=== PATIENT | female | born 1985 | race Caucasian/White ===

== ENCOUNTER 2017-06-18 09:00 | Inpatient (IN) | payer OTHER ==
[~2017-06-18] VITALS: Ht 165.1 cm; Wt 66.7 kg
--- NOTE | ~2017-06-18 | PN ---
Unit #: [id number] #: [id number] Patient: TERRANCE BUSTOS [id number] [facility] [address] [place] [address] [id number] I MR#: [id number] NAME: TERRANCE BUSTOS. ROOM: P252 Age: 32 Sex: F Admission Date: 06/18/2017 : 1985 Attending Physician: Roxy Maxwell M.D. Admitting Physician: Roxy Maxwell M.D. Primary Care Physician: Generic Doctor Not In System [facility] PROGRESS NOTES DATE OF SERVICE 06/19/2017 DISCUSSION Mr. Bustos is a 32-year-old white female who was seen today. Chart was reviewed and case was discussed with the staff. She has been anxious, withdrawn, and rather seclusive to himself. Meanwhile, she has been cooperative with the treatment recommendations and has been taking the medications and tolerating them fairly well with no reported side effects. MENTAL STATUS EXAMINATION Young white female who is casually dressed with fair personal hygiene, appears to be in no acute distress or discomfort. She was awake and alert on interaction with intact orientation. Her mood is anxious and depressed with congruent affect. Her speech is slow and goal-directed. She reports having suicidal ideations. He denies any homicidal ideations. His insight and judgment remain slightly impaired. TREATMENT PLAN 1. We will continue her on her current medications and treatment protocol. We will monitor her response to medications and make further adjustments as needed. 2. We will continue to follow up. Dictated by... Douglas Kan/ramo TD: 06/19/2017 10:29 JOB #: [id number] Unit #: [id number] #: [id number] Patient: TERRANCE BUSTOS [facility] PROGRESS NOTES Page 1 of 1 X Roxy Maxwell MD PROGRESS NOTE
--- NOTE | ~2017-06-18 | HP ---
Unit #: [id number] #: [id number] Patient: TERRANCE GONZALEZ [id number] [place] [address] [id number] MR#: [id number] NAME: TERRANCE GONZALEZ. ROOM: P252 Age: 32 Sex: F Admission Date: 06/18/2017 : 1985 Attending Physician: Roxy Maxwell M.D. Admitting Physician: Roxy Maxwell M.D. Primary Care Physician: Generic Doctor Not In System HISTORY AND PHYSICAL HISTORY OF PRESENT ILLNESS Terrance is a 32 year old admitted to [address] [place] [address] with depression and verbalizing wanting to hurt herself. PAST MEDICAL HISTORY Kidney stones. PAST SURGICAL HISTORY Numerous lithotripsies. ALLERGIES No known drug allergies. SOCIAL HISTORY Smokes less than one-half pack per day. Drinks alcohol rarely. Denies illicit drug use. FAMILY HISTORY Medically noncontributory. REVIEW OF SYSTEMS CONSTITUTIONAL: No fever or chills. HEENT: Denies any sore throat, ear pain or runny nose. CARDIOVASCULAR: Denies chest pain, irregular heart rhythm or palpitations. CHEST: Denies shortness of breath or cough. No hemoptysis. GASTROINTESTINAL: Denies nausea, vomiting, diarrhea or chronic constipation. ENDOCRINE: Denies history of increased thirst or urination. No recent significant weight loss or gain. GENITOURINARY: Denies dysuria, frequency, or hematuria. SKIN: Denies any rashes. HEMATOLOGIC: Denies history of increased bleeding or bruising. MUSCULOSKELETAL: Denies any hot, swollen joints. No generalized muscle pain. NEUROLOGIC: Denies problems with vision or speech. No frequent, severe headaches. No numbness, tingling or weakness in any extremities. Denies loss of bladder or bowel control. CURRENT MEDICATIONS 1. Wellbutrin XL 150 mg q.a.m. 2. Milk of Magnesia p.r.n. 3. Maalox p.r.n. 4. Tylenol p.r.n. Unit #: [id number] #: [id number] Patient: TERRANCE GONZALEZ 5. Nicotine patch 7 mg q. day. PHYSICAL EXAMINATION GENERAL: Alert, well nourished. No apparent distress. VITAL SIGNS: Blood pressure 120/76, heart rate 80, respirations 16, and temperature 98.6. WEIGHT: 147. HEIGHT: 5 feet 5 inches. SKIN: Warm and dry without rash or lesion. HEENT: Normocephalic. TMs not viewed. Oral and nasal passages clear. Conjunctivae clear. PERRLA. EOMs intact. NECK: Supple without lymphadenopathy or thyromegaly. HEART: Regular rate and rhythm without murmur. LUNGS: Clear. ABDOMEN: Soft, nontender. : Not done. EXTREMITIES: No evidence of cyanosis, clubbing or edema. Moves all without focal deficit. NEUROLOGICAL: Grossly within normal limits. Cranial Nerves: II: Visual headley are intact. III, IV AND : Extraocular movements are intact. Pupils are equal, round and reactive to light. V: Facial sensation is grossly normal. VII: Facial movements and expression are normal. VIII: Auditory acuity grossly intact. IX, X: Uvula is midline. Phonation is normal. XI: Patient shrugs shoulders and turns head normally. XII: Tongue protrudes in the midline. Sensory and Motor Function: Sensory and motor sensation is grossly normal. Motor: moves all extremities well. Coordination: Gait is normal. Deep Tendon Reflexes: Intact. IMPRESSION Psychiatric admission. RECOMMENDATIONS PSYCHIATRIC: Per psychiatrist. MEDICAL: I see no contraindication to participate in this facility's activities. MEDICAL PROGNOSIS Good. MEDICAL CONDITION Stable. Dictated by... Shanita Young P.A.-C. for Douglas Olvera/ramo TD: 06/19/2017 13:49 JOB #: [id number] Unit #: [id number] #: [id number] Patient: TERRANCE GONZALEZ HISTORY AND PHYSICAL Page 1 of 1 X Shanita Young HISTORY AND PHYSICAL
--- NOTE | ~2017-06-18 | DS ---
Unit #: [id number] #: [id number] Patient: TERRANCE GONZALEZ [id number] [facility] [address] [place] [address] [id number] I MR#: [id number] NAME: TERRANCE GONZALEZ. ROOM: [facility] Age: 32 Sex: F Admission Date: 06/18/2017 : 1985 Discharge Date: 06/22/2017 Attending Physician: Roxy Maxwell M.D. Primary Care Physician: Generic Doctor Not In System DISCHARGE SUMMARY REASON FOR ADMISSION Suicidal ideation. DIAGNOSTIC STUDIES LABORATORY RESULTS: Unremarkable. HOSPITAL COURSE The patient was admitted to inpatient unit on 06/18/2017 and discharged on 06/22/2017. The patient was treated on the inpatient unit with group therapy, individual therapy, medication management. The patient was responsive to treatment. Subsequently, the patient was discharged with a plan to follow up in outpatient program. DISCHARGE MEDICATIONS Wellbutrin XL 150 mg in the morning for depression. DISCHARGE DIAGNOSES Psychiatric: Major depressive disorder, recurrent, severe, without psychotic features, F33.2; methamphetamine abuse, moderate, F15.20. Secondary diagnosis: Deferred. Medical diagnosis: None. Stressors: Psychosocial stressors. DISCHARGE INSTRUCTIONS The patient to follow up in outpatient clinic as per social services assistant. CONDITION ON DISCHARGE The patient was pleasant and cooperative. Denied any psychotic symptom or any suicidal ideation. PROGNOSIS Guarded. DIET AND ACTIVITY As tolerated. Dictated by... Melquiades Eagle M.D. Unit #: [id number] #: [id number] Patient: TERRANCE GONZALEZ SZC/modl TD: 06/23/2017 16:22 JOB #: [id number] DISCHARGE SUMMARY Page 1 of 1 X Melquiades Eagle MD X DISCHARGE SUMMARY
--- NOTE | ~2017-06-18 | PN ---
Unit #: [id number] #: [id number] Patient: TERRANCE BUSTOS [id number] [facility] [address] [place] [address] [id number] I MR#: [id number] NAME: TERRANCE BUSTOS. ROOM: P252 Age: 32 Sex: F Admission Date: 06/18/2017 : 1985 Attending Physician: Roxy Maxwell M.D. Admitting Physician: Roxy Maxwell M.D. Primary Care Physician: Generic Doctor Not In System [facility] PROGRESS NOTES DATE 06/21/2017 DISCUSSION Ms. Bustos is a 32-year-old white female who was seen today and chart was reviewed and case was discussed with the staff. She has been anxious, withdrawn and rather seclusive to herself. Meanwhile, she has been cooperative with treatment recommendations as she has been taking the medications and tolerating them fairly well with no reported side effects. MENTAL STATUS EXAMINATION Young white female who was casually dressed with fair personal hygiene, appears to be in no acute distress or discomfort. She was awake and alert on interaction with intact orientation. Her mood was anxious with congruent affect. She denies any suicidal or homicidal ideations. Her insight and judgement remains slightly impaired. TREATMENT PLAN 1. We will continue her on her current medications and treatment protocol. We will monitor her response to the medication and make further adjustments as needed. 2. We will continue to follow up. Dictated by... Douglas Kan/erin TD: 06/23/2017 00:09 JOB #: [id number] Unit #: [id number] #: [id number] Patient: TERRANCE BUSTOS [facility] PROGRESS NOTES Page 1 of 1 X Roxy Maxwell MD X PROGRESS NOTE
--- NOTE | ~2017-06-18 | PA ---
Unit #: [id number] #: [id number] Patient: TERRANCE BUSTOS [id number] [facility] [address] [place] [address] [id number] I MR#: [id number] NAME: TERRANCE BUSTOS. ROOM: P252 Age: 32 Sex: F Admission Date: 06/18/2017 : 1985 Date of Assessment: 06/18/2017 Attending Physician: Roxy Maxwell M.D. Admitting Physician: Roxy Maxwell M.D. Primary Care Physician: Generic Doctor Not In System PSYCHIATRIC ASSESSMENT DATE OF SERVICE 06/18/2017. IDENTIFYING DATA Ms. Bustos is a 32-year-old single white female, who is a resident of [place], [place], and was self-referred to the hospital on a voluntary basis. CHIEF COMPLAINT "Depression and suicidal ideation." HISTORY OF PRESENT ILLNESS Ms. Bustos is a 32-year-old white female with history of mood disorder, who brought herself to the hospital reporting increasing depression, suicidal ideation, and that she has noticed increasing depression for about a month now that she moved to [facility] in February, but this past month has been hard for her. The patient reports she lost the will to live and has low energy and has lost interest in doing things and that she has been having suicidal thoughts every day for the past 2 weeks and reports 2 days ago, she had a plan to overdose on medications to take her life. The patient reports that she took about 20 Tylenol PM to kill herself, but she woke up and reports that while she was awake, she could hear voices, but could not move and reports that she feels that she wants to try again hoping to be successful in her suicide attempt and as such, was seemed to be a significant threat to herself and therefore, recommendation for inpatient level of care for safety and stabilization was made. The patient was transferred to us. SUBSTANCE ABUSE HISTORY The patient reports occasional experimentation with methamphetamine, but has not done in the last few months. PAST PSYCHIATRIC HISTORY The patient has a history of outpatient psychiatric treatment in the past. Review of the medical records indicate currently she is not active in any treatment program, is not seeing a psychiatrist, and is not taking any psychotropic medications. PAST MEDICAL HISTORY No acute or chronic medical illnesses. ALLERGIES No known medication allergies. Unit #: [id number] #: [id number] Patient: TERRANCE BUSTOS CURRENT MEDICATIONS None. PERSONAL AND SOCIAL HISTORY A 32-year-old white female, who reports that she is single, unemployed, and lives with her mother, her brother, and has fairly decent social support system. MENTAL STATUS EXAMINATION Young white female, who was casually dressed with fair personal hygiene, appears to be in no acute distress or discomfort. She was awake and alert on interaction with intact orientation to time, place, and person. Her mood was anxious and depressed with a congruent affect. Her speech was slow and restricted in content. She reports having suicidal ideations, but denies any homicidal ideations, and also denies any auditory or visual hallucinations. Her insight and judgment remain slightly impaired. DIAGNOSTIC IMPRESSION Psychiatric: Major depressive disorder, recurrent, moderate, without psychotic features; methamphetamine abuse, moderate. Medical: None. Stressors: Moderate psychosocial stressors. TREATMENT PLAN 1. The patient has presented with history of mood disorder and substance abuse and has been decompensating and will need inpatient hospitalization for safety and stabilization. We will start her back on her home medications. We will adjust the medications and monitor response. 2. Supportive therapy was provided to the patient. 3. Safe, structured, and nourishing environment will be provided. ESTIMATED LENGTH OF STAY 4 to 5 days. ABILITY TO HELP SELF Limited. WILLINGNESS TO HELP SELF The patient appears to be willing to help self. STRENGTHS 1. Communicative. 2. Cooperative. PROBLEMS 1. Chronic dysphoric symptoms. 2. Poor social support system. DISCHARGE CRITERIA This will be contingent upon the patient's ability to show resolution of her depression and anxiety and her ability to stay safe to herself, particularly after discharge from the hospital. Dictated by... Roxy Maxwell M.D. Unit #: [id number] #: [id number] Patient: TERRANCE BSUTOS IAA/modl TD: 06/19/2017 08:11 JOB #: [id number] PSYCHIATRIC ASSESSMENT Page 1 of 1 X Roxy Maxwell A MD X PSYCHIATRIC ASSESSMENT
--- NOTE | ~2017-06-18 | PN ---
Unit #: [id number] #: [id number] Patient: TERRANCE BUSTOS [id number] [facility] [address] [place] [address] [id number] MR#: [id number] NAME: TERRANCE BUSTOS. ROOM: P252 Age: 32 Sex: F Admission Date: 06/18/2017 : 1985 Attending Physician: Roxy Maxwell M.D. Admitting Physician: Roxy Maxwell M.D. Primary Care Physician: Generic Doctor Not In System [facility] PROGRESS NOTES DATE 06/20/2017 DISCUSSION Ms. Bustos is a 32-year-old white female who was seen today and chart was reviewed and case was discussed with the staff. She has been anxious, withdrawn and rather seclusive to herself. Meanwhile, she has been cooperative with treatment recommendations. She has been taking the medications and tolerating them fairly well with no reported side effects. MENTAL STATUS EXAMINATION Young white female who was casually dressed with fair personal hygiene, appears to be in no acute distress or discomfort. She was awake and alert with intact orientation. Her mood was anxious with congruent affect. She denies any suicidal or homicidal ideations. Her insight and judgement remains slightly impaired. TREATMENT PLAN 1. We will continue her on her current medications and treatment protocol. We will monitor her response and make further adjustments as needed. 2. We will continue to follow up. Dictated by... Douglas Kan/erin TD: 06/22/2017 03:37 JOB #: [id number] Unit #: [id number] #: [id number] Patient: TERRANCE BUSTOS [facility] PROGRESS NOTES Page 1 of 1 X Roxy Maxwell MD X PROGRESS NOTE
[2017-06-19 09:40] LABS: BASOPHIL% 0.6 % (0-2.5); EOSINOPHIL# 0.3 X10e3 (0-0.7); EOSINOPHIL% 5.1 % (0.0-7.0); HEMATOCRIT 41.8 % (35.0-45.0); HEMOGLOBIN 13.6 gm/dL (12.0-16.0); LYMPHOCYTE# 1.9 X10e3 (1.0-3.5); LYMPHOCYTE% 31.5 % (17.0-45.0); MEAN CELL VOLUME 89.4 FL (83-96); MEAN CORPUSCULAR HEMOGLOBIN 29.1 PG (28-34); MEAN CORPUSCULAR HGB CONC 32.6 g/dL (30-36); MEAN PLATELET VOLUME 9.8 FL (6.5-11.5); MONOCYTE# 0.4 X10e3 (0-1.0); MONOCYTE% 6.8 % (3.0-12.0); NEUTROPHIL# 3.3 X10e3 (1.5-7.1); PLATELET COUNT 234 X10e3 (140-420); RED BLOOD COUNT 4.67 X10e (3.90-5.30); RED CELL DISTRIBUTION WIDTH 13.5 % (11.0-15.5); WHITE BLOOD COUNT 5.9 X10e3 (4.0-10.5)
[2017-06-19 09:51] LABS: URINE APPEARANCE CLOUDY; URINE BILIRUBIN NEG (NEG); URINE BLOOD NEG (NEG); URINE COLOR YELLOW; URINE GLUCOSE NEG (NEG); URINE KETONE NEG (NEG); URINE LEUKOCYTE ESTERASE NEG (NEG); URINE NITRATE NEG (NEG); URINE PROTEIN NEG (NEG); URINE SPECIFIC GRAVITY 1.019 (1.003-1.035); URINE UROBILINOGEN 0.2 MG/DL (NEG)
[2017-06-19 09:54] LABS: DIFF IND NO
[2017-06-19 10:50] LABS: AMPHETAMINE NEG (NEG); BARBITURATES NEG (NEG); BENZODIAZEPINES NEG (NEG); COCAINE NEG (NEG); MARIJUANA NEG (NEG); OPIATES NEG (NEG); TRICYCLIC ANTIDEPRESSANTS NEG (NEG); U METHADONE NEG (NEG)
[2017-06-19 10:57] LABS: BILIRUBIN,TOTAL 0.2 mg/dL (0.2-2.0); BUN/CREATININE RATIO 16.66; CREATININE SERUM 0.6 mg/dL (0.6-1.4); GLOM FILT RATE Estimated 120.6 mL/min (>60); POTASSIUM 4.1 mmol/L (3.5-5.1); PROTEIN TOTAL SERUM 6.3 g/dL (6.0-8.3)
== END 2017-06-22 16:30 | disposition home or self-care (01) | DRG 885 ==
LOC: P2L 11:39
PROVIDERS: Psychiatry & Neurology Psychiatry
DX: F33.2 Major depressive disorder, recurrent severe without psychotic features (principal); F15.20 Other stimulant dependence, uncomplicated; R45.851 Suicidal ideations; Z87.442 Personal history of urinary calculi; F17.210 Nicotine dependence, cigarettes, uncomplicated
CPT/HCPCS: 80053; 80307; 81003; 84703; 85025

== ENCOUNTER 2017-06-29 18:52 | Emergency (ER) | payer OTHER ==
[~2017-06-29] VITALS: Ht 162.6 cm; Wt 59.0 kg
--- NOTE | ~2017-06-29 | EKG ---
PATIENT: TERRANCE GONZALEZ UNIT #: [id number] Ventricular Rate: 101 BPM Atrial Rate: 101 BPM P-R Interval: 138 ms QRS Duration: 106 ms Q-T Interval: 376 ms QTC Calculation(Bezet): 487 ms P Mcallister: 61 degrees Calculated R Mcallister: 72 degrees Calculated T Mcallister: 26 degrees Diagnosis Line: Sinus tachycardia Diagnosis Line: Nonspecific ST and T wave abnormality consider Diagnosis Line: anterolateral subendocardial injury Diagnosis Line: Abnormal ECG Diagnosis Line: No previous ECGs available Diagnosis Line: Confirmed by LISBETH LOVELL MD ([id number]) on Diagnosis Line: 06/29/2017 9:51:25 PM INTERPRETING MD: CRISTY
--- NOTE | ~2017-06-29 | CR72 ---
[facility] A Service of [facility] RADIOLOGY TEXT RESULTS PATIENT: TERRANCE GONZALEZ LOCATION: [facility] : [birth year] UNIT #: [id number] AGE: [address]: Bunny Paris MD SEX: F ORDER DR: [id number] [facility] [address] [place], [place] [address] [id number] E MR#: [id number] Acc #: [id number] NAME: TERRANCE GONZALEZ : 1985 SEX: F STUDY DATE/TIME: 06/29/2017 UNIT: [facility] ROOM: STUDY DESCRIPTION: CR Chest Single View Portable Attending Physician: Bunny Paris M.D. Ordering Physician: Rob Duncan M.D. Primary Care Physician: Generic Doctor Not In System MEDICAL IMAGING REPORT This report is preliminary unless electronic signature is present XAM Portable chest 06/29 21:18 hours INDICATIONS Mild chest congestion today with homicidal ideations. . FINDINGS A single AP portable view of the chest shows both lungs to be clear. The heart is normal in size. The mediastinal contour is normal. No significant bone abnormalities are seen. IMPRESSION Normal portable chest. Dictated by... Bunny Akhtar Jr., M.D. THIS IS AN ELECTRONICALLY VERIFIED REPORT Bunny Akhtar Jr., M.D. at 06/30/2017 11:27 PM JOAQUIN/cherie TD: 06/30/2017 09:12 JOB #: [id number] MEDICAL IMAGING REPORT Page 1 of 1 COPY
[2017-06-29 19:58] LABS: URINE SOURCE CLEAN CATCH
[2017-06-29 20:17] LABS: URINE APPEARANCE CLEAR; URINE BLOOD NEG (NEG); URINE COLOR YELLOW; URINE GLUCOSE NORM (NORM); URINE KETONE 2+ (NEG); URINE LEUKOCYTE ESTERASE NEG (NEG); URINE NITRATE NEG (NEG); URINE PROTEIN 1+ (NEG); URINE UROBILINOGEN NORM (NORM)
[2017-06-29 20:18] LABS: BASOPHIL% 0.1 % (0-2.5); EOSINOPHIL% 0.2 % (0.0-7.0); HEMATOCRIT 42.7 % (35.0-45.0); HEMOGLOBIN 14.4 gm/dL (12.0-16.0); LYMPHOCYTE# 0.3 X10e3 (1.0-3.5); LYMPHOCYTE% 2.9 % (17.0-45.0); MEAN CELL VOLUME 89.4 FL (83-96); MEAN CORPUSCULAR HGB CONC 33.6 g/dL (30-36); MEAN PLATELET VOLUME 8.9 FL (6.5-11.5); MONOCYTE# 0.2 X10e3 (0-1.0); MONOCYTE% 2.3 % (3.0-12.0); NEUTROPHIL# 8.5 X10e3 (1.5-7.1); NEUTROPHIL% 94.5 % (40-75); PLATELET COUNT 234 X10e3 (140-420); RED BLOOD COUNT 4.78 X10e (3.90-5.30); WHITE BLOOD COUNT 8.9 X10e3 (4.0-10.5)
[2017-06-29 20:18] LABS: URINE BILIRUBIN NEG (NEG)
[2017-06-29 20:21] LABS: DIFF IND NO
[2017-06-29 20:27] LABS: AMPHETAMINE NEG (NEG); BARBITURATES NEG (NEG); BENZODIAZEPINES POS (NEG); COCAINE NEG (NEG); MARIJUANA NEG (NEG); OPIATES NEG (NEG); TRICYCLIC ANTIDEPRESSANTS NEG (NEG); U METHADONE NEG (NEG)
[2017-06-29 20:32] LABS: CULTURE INDICATED? NO; URBCS1 AUWI 0-2 /[HPF] (0-2); URINE SQUAMOUS EPITHELIAL CELL OCCAS /[HPF]; UWBCS1 AUWI 0-2 (0-5)
[2017-06-29 20:45] LABS: ALKALINE PHOSPHATASE 73 U/L (32-92); ALT (SGPT) 27 U/L (10-40); AST (SGOT) 35 U/L (10-42); BILIRUBIN, DIRECT 0.3 mg/dL (0.0-0.2); BILIRUBIN,INDIRECT 1.2 mg/dL (0.0-0.9); BILIRUBIN,TOTAL 1.5 mg/dL (0.2-2.0); BLOOD UREA NITROGEN 15 mg/dL (9-23); CARBON DIOXIDE 20 mmol/L (22-31); CHLORIDE 104 mmol/L (100-111); GLOM FILT RATE Estimated 74.5 mL/min (>60); GLUCOSE FASTING 112 mg/dL (70-110); PROTEIN TOTAL SERUM 8.1 g/dL (6.0-8.3); SALICYLATE <4.0 mg/dL; SODIUM 136 mmol/L (135-145)
[2017-06-29 20:52] LABS: ACETAMINOPHEN <10 ug/mL; ALCOHOL BLOOD <5 mg/dL ([, 0])
== END 2017-06-30 02:57 ==
LOC: CED 18:52 → EDBD 19:16 → CED 19:16
PROVIDERS: Emergency Medicine
DX: T52.0X1A Toxic effect of petroleum products, accidental (unintentional), initial encounter (principal); F32.9 Major depressive disorder, single episode, unspecified; F22 Delusional disorders; F15.10 Other stimulant abuse, uncomplicated
CPT/HCPCS: 36415; 51701; 71010; 80048; 80076; 80307; 81003; 84703; 85025; 93005; 96361; 96374; 96375; 99285; G0480; J2060; J2405; J3486

== ENCOUNTER 2017-06-29 22:01 | Inpatient (IN) | payer OTHER ==
[~2017-06-29] VITALS: Ht 165.1 cm; Wt 66.7 kg
--- NOTE | ~2017-06-29 | DS ---
Unit #: [id number] #: [id number] Patient: TERRANCE GONZALEZ [id number] [facility] [address] [place] [address] [id number] I MR#: [id number] NAME: TERRANCE GONZALEZ ROOM: P252 Age: 32 Sex: F Admission Date: 06/30/2017 : 1985 Discharge Date: 07/06/2017 Attending Physician: Roxy Maxwell M.D. Primary Care Physician: Generic Doctor Not In System DISCHARGE SUMMARY IDENTIFYING DATA Ms. Anthony is a 32-year-old single white female with history of mood disorder, who is known to me from previous encounter, was transferred to us from [facility]. DISCHARGE DIAGNOSES Psychiatric: Bipolar disorder, most recent episode manic with psychosis. Medical: None. Stressors: Moderate psychosocial stressors. HISTORY OF PRESENT ILLNESS Please see initial psychiatric evaluation for details. PAST PSYCHIATRIC HISTORY Please see initial psychiatric evaluation for details. PAST MEDICAL HISTORY Please see initial psychiatric evaluation for details. HOSPITAL COURSE The [facility] and was oriented to the hospital environment. Routine p.r.n. medications were initiated, and she was started back on her home medications and medications were adjusted. The patient was exhibiting acute psychosis and so Zyprexa was initially started and titrated and antidepressant particularly Wellbutrin was discontinued primarily because she overdosed on that. However, she once started feeling better, stated that she would like to get back on different antidepressant and she describes herself to be experiencing some depressive symptoms and Zoloft on her own request was initiated and Zyprexa was maintained and she was closely monitored. The patient was taking medications regularly and was tolerating them fairly well and was able to show a decent and therapeutic response with improvement in depression and anxiety, and was not showing any acute psychosis, agitation, or aggression, and was not seemed to be danger to self or anyone else, and as such, it was decided that she will be discharged home and will continue treatment on an outpatient basis. DISCHARGE MEDICATIONS Zyprexa 10 mg b.i.d. for bipolar and Zoloft 50 mg a day for depression. DISCHARGE CONDITION Stable. PROGNOSIS Unit #: [id number] #: [id number] Patient: TERRANCE GONZALEZ. Dictated by... Douglas Kan/francesca TD: 07/06/2017 07:22 JOB #: [id number] DISCHARGE SUMMARY Page 1 of 1 X Roxy Maxwell MD X DISCHARGE SUMMARY
--- NOTE | ~2017-06-29 | PN ---
Unit #: [id number] #: [id number] Patient: TERRANCE BUSTOS [id number] [facility] [address] [place] [address] [id number] I MR#: [id number] NAME: TERRANCE BUSTOS ROOM: P252 Age: 32 Sex: F Admission Date: 06/30/2017 : 1985 Attending Physician: Roxy Maxwell M.D. Admitting Physician: Roxy Maxwell M.D. Primary Care Physician: Generic Doctor Not In System [facility] PROGRESS NOTES DATE OF SERVICE 07/02/2017 DISCUSSION Ms. Bustos is a 32-year-old white female who was seen today. Chart was reviewed and case was discussed with the staff. She has been anxious and reports persistent depressive symptoms and requested an antidepressant to be started. Meanwhile, she also has been complaining of poor sleep at night and so far has been taking Zyprexa though still has been exhibiting some persistent psychosis with paranoia and bizarre behavior. MENTAL STATUS EXAMINATION Young white female who is casually dressed with fair personal hygiene, appears to be in no acute distress or discomfort. She was awake and alert on interaction with intact orientation. Her mood is anxious with congruent affect. Speech is slow and goal-directed. She denies any suicidal or homicidal ideations and also denies any auditory or visual hallucinations. Her insight and judgment remain slightly impaired. TREATMENT PLAN 1. We will continue her on her current medications and treatment protocol. We will monitor her response to the medications and make further adjustments as needed. 2. We will continue to follow up. Dictated by... Douglas Kan/ramo TD: 07/02/2017 12:17 JOB #: [id number] Unit #: [id number] #: [id number] Patient: TERRANCE BUSTOS [facility] PROGRESS NOTES Page 1 of 1 X Roxy Maxwell MD PROGRESS NOTE
--- NOTE | ~2017-06-29 | PA ---
Unit #: [id number] #: [id number] Patient: TERRANCE BUSTOS [id number] [facility] [address] [place] [address] [id number] I MR#: [id number] NAME: TERRANCE BUSTOS ROOM: P252 Age: 32 Sex: F Admission Date: 06/30/2017 : 1985 Date of Assessment: 06/30/2017 Attending Physician: Roxy Maxwell M.D. Admitting Physician: Roxy Maxwell M.D. Primary Care Physician: Generic Doctor Not In System PSYCHIATRIC ASSESSMENT DATE OF SERVICE 06/30/2017. IDENTIFYING DATA Ms. Bustos is a 32-year-old single white female with history of mood disorder and psychosis, who is known to me from previous encounter and is a resident of [place], [place], and was transferred back to us from [facility]. CHIEF COMPLAINT "I wanted to kill everybody." HISTORY OF PRESENT ILLNESS Ms. Bustos is a 32-year-old white female, who was taken to [facility] after she was brought in by EMS as they found her wandering in the cain and she told the ER staff that she wanted to kill everybody and also reports that she wants to , but she cannot because she is immortal and reports drinking 20 ounce of gasoline and take an unknown amount of Wellbutrin in a suicide attempt and her drug screen was also seen to be positive for benzodiazepines, even though she does not have any prescription for that. She was seen to be somewhat confused and disoriented and was laughing uncontrollably and was alternating, talking in Swedish and other languages and only spoke to ER staff in Swedish and was medically cleared and then transferred to us as the patient was seen to be acutely psychotic with bizarre behavior, impulsivity, and talking about suicide and homicide and attempting to kill herself and wanted to kill everybody else and believing that she is immortal. SUBSTANCE ABUSE HISTORY The patient reports history of methamphetamine and benzodiazepine and alcohol abuse and her drug screen was positive only for benzodiazepine upon presentation to the hospital. PAST PSYCHIATRIC HISTORY The patient has had [facility] and has been diagnosed and treated for bipolar disorder and review of the medical records indicate that more recently, she has been noncompliant with outpatient treatment including outpatient followup and medications. PAST MEDICAL HISTORY The patient's medical history is insignificant. Unit #: [id number] #: [id number] Patient: TERRANCE BUSTOS ALLERGIES No known medication allergies. PERSONAL AND SOCIAL HISTORY A 32-year-old white female, who reports that she lives at home with her mother and brother and has fairly decent social support system. MENTAL STATUS EXAMINATION Young white female who was casually dressed with fair personal hygiene, appears to be in no acute distress or discomfort. She was awake and alert on interaction with intact orientation to time, place, and person. Her mood was anxious and depressed with a congruent affect. Her speech was slow and restricted in content. Her thought processes were disorganized with some looseness of associations and flight of ideas and paranoid ideations. Her insight and judgment remain significantly impaired. DIAGNOSTIC IMPRESSION Psychiatric: Bipolar disorder, most recent episode depressed, recurrent, moderate, without psychotic features. Medical: None. Stressors: Moderate psychosocial stressors. TREATMENT PLAN 1. The patient has presented with history of mood disorder and substance abuse and has been decompensating and will need inpatient hospitalization for safety and stabilization. We will start her back on her home medications. We will adjust the medications and monitor response. 2. Supportive therapy was provided to the patient. 3. Safe, structured, and nourishing environment will be provided. ESTIMATED LENGTH OF STAY 5 to 7 days. ABILITY TO HELP SELF Limited. WILLINGNESS TO HELP SELF The patient appears to be willing to help self. STRENGTHS 1. Communicative. 2. Cooperative. PROBLEMS 1. Chronic dysphoric symptoms. 2. Poor social support system. DISCHARGE CRITERIA This will be contingent upon the patient's ability to show resolution of her depression and psychosis as well as her ability to stay safe to herself, particularly after discharge from the hospital. Dictated by... Roxy Maxwell M.D. IAA/modl Unit #: [id number] #: [id number] Patient: TERRANCE BUSTOS TD: 06/30/2017 07:46 JOB #: [id number] PSYCHIATRIC ASSESSMENT Page 1 of 1 X Roxy Maxwell MD PSYCHIATRIC ASSESSMENT
--- NOTE | ~2017-06-29 | PN ---
Unit #: [id number] #: [id number] Patient: TERRANCE BUSTOS [id number] [facility] [address] [place] [address] [id number] I MR#: [id number] NAME: TERRANCE BUSTOS ROOM: P252 Age: 32 Sex: F Admission Date: 06/30/2017 : 1985 Attending Physician: Roxy Maxwell M.D. Admitting Physician: Roxy Maxwell M.D. Primary Care Physician: Generic Doctor Not In System [facility] PROGRESS NOTES DATE 07/01/2017 DISCUSSION Ms. Bustos is a 32-year-old white female with mood disorder and psychosis who was seen today and chart was reviewed and case was discussed with the staff. She remains anxious, withdrawn, disorganized with bizarre behavior. Meanwhile, she has been taking medications and tolerating them fairly well with no reported side effects. MENTAL STATUS EXAMINATION Young white female who was casually dressed with fair personal hygiene and appears to be in no acute distress or discomfort. She was awake and alert on interaction with intact orientation. Her mood was anxious with congruent affect. Speech is slow and tangential. Her thought processes were disorganized with some looseness of associations, paranoid ideations. Her insight and judgement remains significantly impaired. TREATMENT PLAN 1. Will continue on current medications and treatment protocol. Will monitor her response to the medications and make further adjustments as needed. 2. Will continue to follow up. Dictated by... Douglas Kan/ezio TD: 07/01/2017 15:07 JOB #: [id number] Unit #: [id number] #: [id number] Patient: TERRANCE BUSTOS [facility] PROGRESS NOTES Page 1 of 1 X Roxy Maxwell MD PROGRESS NOTE
--- NOTE | ~2017-06-29 | PN ---
Unit #: [id number] #: [id number] Patient: TERRANCE BUSTOS [id number] [facility] [address] [place] [address] [id number] I MR#: [id number] NAME: TERRANCE BUSTOS ROOM: P252 Age: 32 Sex: F Admission Date: 06/30/2017 : 1985 Attending Physician: Roxy Maxwell M.D. Admitting Physician: Roxy Maxwell M.D. Primary Care Physician: Generic Doctor Not In System [facility] PROGRESS NOTES DATE OF SERVICE: 07/05/2017 SUBJECTIVE Ms. Bustos is a 32-year-old white female, who was seen today and chart was reviewed, and case was discussed with the staff. The patient has been anxious, withdrawn, and rather seclusive to herself. Meanwhile, she has been cooperative with treatment recommendation and has been taking medications and tolerating them fairly well with no reported side effects. MENTAL STATUS EXAMINATION Young white female, who was casually dressed with fair personal hygiene, appears to be in no acute distress or discomfort. She was awake and alert with intact orientation. Her mood was anxious and depressed with a congruent affect. Her speech was slow and goal directed. She denies any suicidal or homicidal ideations, and also denies any auditory or visual hallucinations. Her insight and judgment remain slightly impaired. TREATMENT PLAN 1. We will continue on her current medications and treatment protocol. We will monitor her response to the medications and make further adjustments as needed. 2. We will continue to follow up. Dictated by... Douglas Kan/francesca TD: 07/07/2017 00:02 JOB #: [id number] [facility] PROGRESS NOTES Page 1 of 1 X Roxy Maxwell MD PROGRESS NOTE
--- NOTE | ~2017-06-29 | PN ---
Unit #: [id number] #: [id number] Patient: TERRANCE BUSTOS [id number] [facility] [address] [place] [address] [id number] I MR#: [id number] NAME: TERRANCE BUSTOS ROOM: P252 Age: 32 Sex: F Admission Date: 06/30/2017 : 1985 Attending Physician: Roxy Maxwell M.D. Admitting Physician: Roxy Maxwell M.D. Primary Care Physician: Generic Doctor Not In System [facility] PROGRESS NOTES DATE 07/04/2017 DISCUSSION Ms. Bustos is a 32-year-old white female with mood disorder who was seen today and chart was reviewed and case was discussed with the staff. She has been anxious, withdrawn and rather seclusive to herself though she has been taking medications and tolerating them fairly well with no reported side effects. MENTAL STATUS EXAMINATION Young white female who was casually dressed with fair personal hygiene and appears to be in no acute distress or discomfort. She was awake and alert on interaction with intact orientation. Her mood was anxious with congruent affect. She denies any suicidal or homicidal ideation. Her insight and judgement remains slightly impaired. TREATMENT PLAN 1. Will continue on current medications and treatment protocol. Will monitor her response to medications and make further adjustments as needed. 2. Will continue to follow up. Dictated by... Roxy Maxwell M.D. IAA/ezio TD: 07/06/2017 10:32 JOB #: [id number] Unit #: [id number] #: [id number] Patient: TERRANCE BUSTOS [facility] PROGRESS NOTES Page 1 of 1 X Roxy Maxwell MD PROGRESS NOTE
--- NOTE | ~2017-06-29 | PN ---
Unit #: [id number] #: [id number] Patient: TERRANCE BUSTOS [id number] [facility] [address] [place] [address] [id number] I MR#: [id number] NAME: TERRANCE BUSTOS ROOM: P252 Age: 32 Sex: F Admission Date: 06/30/2017 : 1985 Attending Physician: Roxy Maxwell M.D. Admitting Physician: Roxy Maxwell M.D. Primary Care Physician: Generic Doctor Not In System [facility] PROGRESS NOTES DATE OF SERVICE 07/03/2017 DISCUSSION Ms. Bustos is a 32-year-old white female who was seen today. Chart was reviewed and case was discussed with the staff. She has been anxious, withdrawn, and rather seclusive to herself. Meanwhile, she has been cooperative with the treatment recommendations and has been taking the medications and tolerating them fairly well with no reported side effects. MENTAL STATUS EXAMINATION Young white female who is casually dressed with fair personal hygiene, appears to be in no acute distress or discomfort. The patient was awake and alert on interaction with intact orientation. Her mood is anxious with a congruent affect. She denies any suicidal or homicidal ideations. Her insight and judgment remain slightly impaired. TREATMENT PLAN 1. We will continue her on her current medications and treatment protocol. We will monitor her response to the medications and make further adjustments as needed. 2. We will continue to follow up. Dictated by... Roxy Maxwell M.D. IAA/keciag TD: 07/03/2017 10:19 JOB #: [id number] [facility] PROGRESS NOTES Page 1 of 1 X Roxy Maxwell MD X PROGRESS NOTE
--- NOTE | ~2017-06-29 | HP ---
Unit #: [id number] #: [id number] Patient: TERRANCE GONZALEZ [id number] [place] [address] [id number] I MR#: [id number] NAME: TERRANCE GONZALEZ ROOM: P252 Age: 32 Sex: F Admission Date: 06/30/2017 : 1985 Attending Physician: Roxy Maxwell M.D. Admitting Physician: Roxy Maxwell M.D. Primary Care Physician: Generic Doctor Not In System HISTORY AND PHYSICAL HISTORY OF PRESENT ILLNESS Terrance is a 32 year old admitted to [address] [place] [address] with depression verbalizing wanting to hurt herself. She was just discharged from this facility. The patient was seen and H and P dated 06/19/2017 was reviewed. This is current. No changes. Please see H and P dated 06/19/2017. Dictated by... Sury HawkAHeather. for Douglas Olvera/ramo TD: 07/01/2017 13:51 JOB #: [id number] HISTORY AND PHYSICAL Page 1 of 1 X Shanita Young HISTORY AND PHYSICAL
--- NOTE | ~2017-06-29 | TN ---
Unit #: [id number] #: [id number] Patient: TERRANCE GONZALEZ [id number] [facility] [address] [place] [address] [id number] I MR#: [id number] NAME: TERRANCE GONZALEZ ROOM: P252 Age: 32 Sex: F Admission Date: 06/30/2017 : 1985 Discharge Date: 07/06/2017 Attending Physician: Roxy Maxwell M.D. Primary Care Physician: Generic Doctor Not In System LOC TRANSFER NOTE DATE OF SERVICE: 07/09/2017 DATE OF SERVICE 07/09/2017. HISTORY OF PRESENT ILLNESS Ms. Anthony is a 32-year-old white female with history of substance abuse, mood disorder, and psychosis, who was stepped down to the outpatient treatment program from the adult inpatient psychiatric unit at [facility], where she was hospitalized under my care from 02/28/2017 to 03/06/2017 and was brought to the hospital with acute psychosis and was stabilized on a combination of Zyprexa and Zoloft; however, she also has had significant history of substance abuse including benzodiazepines and opioids and was demanding opioids quite regularly, but was denied and was unstable. She was stepped down to the outpatient treatment program. She comes to the office today and appears to be quite manic and bizarre and disorganized and appears to be slipping back into psychosis as she was discharged from the hospital 3 days ago and she reports that she has not taken the Zyprexa because her insurance did not approve the prescription, but then when told that we will address that issue and fix the problems so she can get started on Zyprexa, she was then seen to be exhibiting significant paranoia and bizarre behavior and was very animated and was flirtacious at times and was making comments that she does not know if she really wants to take it or not and then was making different facial gestures and eye movements and was exhibiting significant out of touch with reality behavior; however, she did not show any agitation or aggression. SUBSTANCE ABUSE HISTORY The patient has a history of experimentation with opioids and methamphetamine and benzodiazepine abuse. PAST PSYCHIATRIC HISTORY The patient has had a history of inpatient psychiatric hospitalization at [facility] and has been diagnosed and treated for schizoaffective disorder, bipolar type and is currently on a combination of Zyprexa and Zoloft, but has not been taking her Zyprexa. PAST MEDICAL HISTORY No acute or chronic medical illnesses. ALLERGIES No known medication allergies. Unit #: [id number] #: [id number] Patient: TERRANCE GONZALEZ PERSONAL AND SOCIAL HISTORY A 32-year-old white female, who reports that she is single, unemployed, and lives at home with her mother and has fairly decent social support system. MENTAL STATUS EXAMINATION Young white female, who was casually dressed with fair personal hygiene, appears to be in no acute distress or discomfort. She was awake and alert on interaction with intact orientation. Her mood was anxious with a congruent affect. Her speech was slow and goal directed. She denies any suicidal or homicidal ideations and also denies any auditory or visual hallucinations. Her insight and judgment remain slightly impaired. DIAGNOSTIC IMPRESSION Psychiatric: Schizoaffective disorder, bipolar type, most recent episode manic with psychosis; opioid dependence, moderate; methamphetamine abuse, moderate; and cannabis abuse, moderate. Medical: None. Stressors: Moderate psychosocial stressors. TREATMENT PLAN 1. The patient has presented with a history of substance abuse, mood disorder, and psychosis and we will recommend enrolling her into the outpatient treatment program and encouraging her to get her prescription for Zyprexa filled today and start taking the medications and we will put emphasis on compliance. 2. Supportive therapy was provided to the patient. 3. Safe, structured, and nourishing environment will be provided. ESTIMATED LENGTH OF STAY 14 to 21 days. ABILITY TO HELP SELF Limited. WILLINGNESS TO HELP SELF The patient appears to be willing to help self. STRENGTHS 1. Communicative. 2. Cooperative. PROBLEMS 1. Chronic dysphoric symptoms. 2. Poor social support system. DISCHARGE CRITERIA This will be contingent upon the patient's ability to show resolution of her depression and psychosis and her ability to stay safe to herself, particularly after discharge from the program. Dictated by... Roxy Maxwell M.D. ADOLFO/francesca TD: 07/09/2017 13:03 Unit #: [id number] #: [id number] Patient: TERRANCE GONZALEZ JOB #: [id number] LOC TRANSFER NOTE Page 1 of 1 X Roxy Maxwell MD LOC TRANSFER NOTE
== END 2017-07-06 11:05 | disposition home or self-care (01) | DRG 885 ==
LOC: P2L 06-30 03:58
DX: F31.2 Bipolar disorder, current episode manic severe with psychotic features (principal); F17.200 Nicotine dependence, unspecified, uncomplicated; Z87.442 Personal history of urinary calculi